=== PATIENT | male | born 1995 | race Caucasian/White ===

== ENCOUNTER 2025-01-14 19:26 | Outpatient (REF) | payer MEDICAID, SELFPAY ==
[2025-01-14 20:47] LABS: Abs Immature Grans 0.04 10^3/uL (0.0-0.06); HCT 51.3 % (40.0-50.0); HGB 16.8 g/dL (13.5-17.5); Immature Grans % 0.3 %; MCH 28.7 pg (27.0-33.0); MCHC 32.7 % (32.0-36.0); MCV 88 fL (80-95); MPV 11.8 fL (8.0-11.0); Platelet Count 435 10^3/uL (130-400); RBC 5.85 10^6/uL (4.36-5.78); RDW 12.0 % (11.8-14.1); RDW-SD 38.4 fL; WBC 12.03 10^3/uL (4.4-10.8)
[2025-01-14 21:03] LABS: Lipase 87 U/L (<53)
[2025-01-14 21:06] LABS: Hemoglobin A1C 11.5 % (<5.7)
[2025-01-14 21:20] LABS: ALT 51 U/L (10-49); AST 26 U/L (<34); Albumin 5.0 g/dL (3.4-5.0); Alkaline Phosphatase 87 U/L (46-116); Anion Gap 19.3 mmol/L (3-11); BUN 25 mg/dL (9-23); Bilirubin, Total 0.40 mg/dL (0.2-1.2); CO2 18.8 mmol/L (20.0-31.0); Calcium 10.4 mg/dL (8.3-10.6); Chloride 87 mmol/L (98-107); Cholesterol 280 mg/dL (<200); Glucose 839 mg/dL (74-106); HDL Cholesterol 33 mg/dL (>40); Potassium 4.9 mmol/L (3.5-5.1); Sodium 125 mmol/L (136-145); Total Protein 8.6 g/dL (5.7-8.2)
[2025-01-14 21:40] LABS: Amylase 30 U/L (30-118)
== END 2025-01-14 19:27 | disposition home or self-care (01) ==
LOC: LBN 19:26
PROVIDERS: Visit Provider Nurse Practitioner Family
DX: R10.11 Right upper quadrant pain (principal); R73.09 Other abnormal glucose
CPT/HCPCS: 80053; 80061; 83690; 83721; 82150; 83036; 85025

== ENCOUNTER 2025-01-15 09:32 | Inpatient (IN) | payer MEDICAID, SELFPAY ==
[2025-01-15] VITALS (102 sets, daily range): BP systolic 136–177; BP diastolic 101–128; PULSE 106–132; RESP 12–26; TEMP 35.8–36.9; O2SAT 92–963
--- NOTE | 2025-01-15 09:45 | DI.CT_ITS ---
Exam(s) CT ABDOMEN PELVIS W EXAM: CT ABDOMEN PELVIS W CLINICAL HISTORY: lower abdominal pain, vomiting. TECHNIQUE: Imaging Protocol: Axial computed tomography images with coronal and sagittal reformatted images were created and reviewed CONTRAST MATERIAL: Intravenous: Omnipaque-350 100cc Oral: None COMPARISON: No exams were available for comparison FINDINGS: VISUALIZED LUNG BASES: No nodules nor pleural effusions evident. ABDOMEN: There is no ascites. LIVER: Liver is enlarged and hypodense implying steatosis. No dilated intrahepatic ducts. GALLBLADDER/BILIARY: No obvious gallbladder pathology. CBD is not dilated. PANCREAS: No evidence of pancreatic mass nor dilatation of the pancreatic duct. No evidence of pancreatic atrophy, given the history here. Also no CT evidence of pancreatitis. SPLEEN: Spleen is not enlarged. No obvious intrasplenic lesions. Splenic and portal veins are patent. ADRENALS: There are no significant adrenal masses. KIDNEYS:No cysts evident. No solid renal masses. No calculi nor hydronephrosis.. ABDOMINAL AORTA: Abdominal aorta is not enlarged. LYMPH NODES:There is no retroperitoneal nor paraaortic adenopathy. ABDOMINAL WALL: No evidence of significant anterior abdominal wall nor inguinal hernia. GI: There is no evidence of bowel obstruction, free air, nor abscess. PELVIS: GI: Appendicolith but no evidence of acute appendicitis at this time.No evidence of sigmoid diverticulitis. LYMPH NODES: There is no intrapelvic nor inguinal adenopathy. REPRODUCTIVE: Prostate size normal. Seminal vesicles unremarkable. URINARY BLADDER: No calculi nor obvious masses evident OSSEOUS: No fractures and no significant osseous lesions. IMPRESSION: 1. No evidence of acute appendicitis. No diverticulitis. 2. Hepatomegaly and hepatic steatosis. Report called by myself to ER provider 01/15/2025 at 11:10 a.m. RADIATION DOSE DELIVERED: 1,187.97mGy.cm Total DLP DATA REPOSITORY: All CT scans at this facility are submitted to the National Radiology Data Registry (NRDR) Dose Index Registry (DIR) with the [employer] (ACR). RADIATION OPTIMIZATION: All CT scans at this facility use at least one of these dose optimization techniques: automated exposure control; mA and/or kV adjustment per patient size (includes targeted exams where dose is matched to clinical indication); or iterative reconstruction.
--- NOTE | 2025-01-15 09:45 | RT.EKG_ITS ---
APPROVED REPORT Exam: Resting ECG Reason for Exam: tachy Patient Location: E HR:114 bpm ECG Measurements Heart Rate 114 AXIS WI 139 P 53 QRSd 99 QRS 13 QT 336 T 50 QTc 462 Conclusion No STEMI
--- NOTE | 2025-01-15 09:56 | W.ED.GENAD ---
Discharge Plan Disposition Patient Disposition: Admit to [facility] Condition: Good Discharge Details Clinical Impression: Diabetic ketoacidosis, Dehydration Primary Care Provider: Unknown,Unknown ED Provider: Piero Gaspar Home Meds and New Rx's Prescriptions: No Action No Known Home Meds HPI General Date/Time Provider Initiated Documentation: 01/15/25 09:52. HPI Narrative: This is a pleasant 29-year-old male with no known past medical history who presents today for medical evaluation of hyperglycemia and feeling unwell. For the past 7 days the patient has had nausea, vomiting, dysuria, generalized abdominal pain, and feeling unwell. He feels weak and slightly dizzy in general. He states that he is drinking frequently, and feels that he can never relieve his thirst. He denies any blood in his vomitus. He went to urgent care yesterday and had a notably elevated blood sugar, mildly elevated lipase, and other lab abnormalities and was encouraged to go to the ER for immediate evaluation. He states he has a strong family history of diabetes, hypertension and cardiac disease. He denies any other complaints at this time. Related Data Home Medications ?Medication ?Instructions ?Recorded ?Confirmed Unknown [No Known Home Meds] 01/15/25 01/15/25 Allergies Allergy/AdvReac Type Severity Reaction Status Date / Time No Known Allergies Allergy Unverified 01/15/25 09:57 General Stated Complaint: Dizzy/Sync EDGAR: 2 Exam Narrative Exam Narrative: 1.Const: Well-nourished, Well-developed, appearing stated age 2.Eyes: PERRL, no conjunctival injection, and symmetrical lids. 3.ENT: Atraumatic external nose and ears. Notably dry MM. Neck: Symmetric, trachea midline, No thyromegaly. 4.CVS: +S1/S2, Peripheral pulses 2+ and equal in all extremities. Brisk capillary refill in all extremities. 5.RESP: Unlabored respiratory effort. Clear to auscultation bilaterally. No wheezes rales or rhonchi 6.GI: Soft, nondistended, no guarding or rebound. Mild to moderate tenderness in the lower abdomen for the right left and middle regions. 7.MSK: Normocephalic/Atraumatic, Extremities w/o deformity or ttp No cyanosis or clubbing, Normal movement of all extremities 8.Skin: Warm, Dry. No rashes or lesions. 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 Sensation grossly intact, no focal neurologic deficits. 10.Psych: (AAO) x3. Appropriate mood and affect Course Vital Signs Vital signs: Vital Signs Temperature 36.7 C 01/15/25 09:40 Pulse 125 H 01/15/25 09:40 Respiratory Rate 18 01/15/25 09:40 Blood Pressure 173/111 H 01/15/25 09:40 Pulse Oximetry 963 H 01/15/25 09:40 Temperature 36.7 C 01/15/25 09:40 Temperature Source Oral 01/15/25 09:40 Pulse 125 H 01/15/25 09:40 Respiratory Rate 18 01/15/25 09:40 Blood Pressure 173/111 H 01/15/25 09:40 Pulse Oximetry 963 H 01/15/25 09:40 Medical Decision Making This is a pleasant 29-year-old male with no known past medical history who presents today for medical evaluation of hyperglycemia and feeling unwell. For the past 7 days the patient has had nausea, vomiting, dysuria, generalized abdominal pain, and feeling unwell. He feels weak and slightly dizzy in general. He states that he is drinking frequently, and feels that he can never relieve his thirst. He denies any blood in his vomitus. He went to urgent care yesterday and had a notably elevated blood sugar, mildly elevated lipase, and other lab abnormalities and was encouraged to go to the ER for immediate evaluation. He states he has a strong family history of diabetes, hypertension and cardiac disease. He denies any other complaints at this time. Exam demonstrates lower abdominal tenderness throughout, notably dry mucous membranes. Differential is very high for HHNK, DKA, appendicitis, UTI or pyelonephritis. We will start IV fluids for the patient, I suspect he is profoundly dehydrated. Depending on VBG status we will give potential IV versus subcu insulin. We will get an EKG, monitor closely and reassess. 11:41 AM Laboratory workup shows acidosis with a pH of 7.19, lactate of 3, elevated anion gap of 24, BUN of 24 with a creatinine of 1.1. He has an elevated white count but I suspect component of this may be secondary to volume concentration. Patient had a glucose of 647, sodium is 129 but corrected it is 138. No UTI on urinalysis, ketones are present though. Patient demonstrates signs and symptoms clinically consistent with diabetic ketoacidosis. CT of the abdomen negative for acute process aside for fatty liver. Insulin infusion was started early on, he received a liter of lactated Ringer's, followed by normal saline, and is currently getting his third liter at this time. Patient is feeling much better after rehydration and insulin infusion. Discussed the case with the hospitalist Dr. Waite, he agrees with the assessment and plan. I have extensively reviewed the treatment plan with the patient. I have addressed all patient concerns at this time. I have also discussed the plan with the admitting physician and they agree with the current assessment and plan and have agreed to assume responsibility for the patient. All parties demonstrate verbal understanding and agreement with our assessment and plan at this time. The documentation in this chart was dictated using [employer] dictation software. Please excuse any dictation errors. FINDINGS: VISUALIZED LUNG BASES: No nodules nor pleural effusions evident. ABDOMEN: There is no ascites. LIVER: Liver is enlarged and hypodense implying steatosis. No dilated intrahepatic ducts. GALLBLADDER/BILIARY: No obvious gallbladder pathology. CBD is not dilated. PANCREAS: No evidence of pancreatic mass nor dilatation of the pancreatic duct. No evidence of pancreatic atrophy, given the history here. Also no CT evidence of pancreatitis. SPLEEN: Spleen is not enlarged. No obvious intrasplenic lesions. Splenic and portal veins are patent. ADRENALS: There are no significant adrenal masses. KIDNEYS:No cysts evident. No solid renal masses. No calculi nor hydronephrosis.. ABDOMINAL AORTA: Abdominal aorta is not enlarged. LYMPH NODES:There is no retroperitoneal nor paraaortic adenopathy. ABDOMINAL WALL: No evidence of significant anterior abdominal wall nor inguinal hernia. GI: There is no evidence of bowel obstruction, free air, nor abscess. PELVIS: GI: Appendicolith but no evidence of acute appendicitis at this time.No evidence of sigmoid diverticulitis. LYMPH NODES: There is no intrapelvic nor inguinal adenopathy. REPRODUCTIVE: Prostate size normal. Seminal vesicles unremarkable. URINARY BLADDER: No calculi nor obvious masses evident OSSEOUS: No fractures and no significant osseous lesions. IMPRESSION: 1. No evidence of acute appendicitis. No diverticulitis. 2. Hepatomegaly and hepatic steatosis. Report called by myself to ER provider 01/15/2025 at 11:10 a.m. Critical Care Time Critical Care Time Critical Care Time: Yes Total Critical Care Time: 45 Attestation: Upon my evaluation, this patient had a high probability of imminent or life-threatening deterioration, which required my direct attention, intervention, and personal management. I have personally provided 45 minutes of critical care time exclusive of time spent on separately billable procedures. Time includes review of laboratory data, radiology results, discussion with consultants, and monitoring for potential decompensation. Interventions were performed as documented. PFSH All Active Problems (Updated 01/15/25 @ 11:45 by Piero Gaspar DO) Dehydration (Acute) Diabetic ketoacidosis (Acute) Social History Smoking/Tobacco Use Status: Never Smoking risk assessment performed?: Yes Do you feel safe at home: Yes Do you feel safe in your relationship?: Yes
[2025-01-15 10:02] LABS: Abs Immature Grans 0.07 10^3/uL (0.0-0.06); BE (Venous) -14 mmol/L (-2-3); HCO3 (Venous) 15 mmol/L (23-28); HCT 50.2 % (40.0-50.0); HGB 16.7 g/dL (13.5-17.5); Immature Grans % 0.4 %; MCH 28.1 pg (27.0-33.0); MCHC 33.3 % (32.0-36.0); MCV 85 fL (80-95); MPV 11.3 fL (8.0-11.0); O2 Sat (Venous) 80 %; Platelet Count 438 10^3/uL (130-400); RBC 5.94 10^6/uL (4.36-5.78); RDW 12.0 % (11.8-14.1); RDW-SD 36.7 fL; TCO2 (Venous) 13 mmol/L (24-29); WBC 16.04 10^3/uL (4.4-10.8); pCO2 (Venous) 39 mmHg (41-51); pO2 (Venous) 51 mmHg
[2025-01-15] MEDS: Ondansetron 4 MG/2 ML VIAL IVP (10:14)
[2025-01-15] MEDS: Lactated Ringers 1,000 ML 1000 ML IV ×2 (10:14→12:37)
[2025-01-15 10:18] LABS: Lipase 51 U/L (<53)
[2025-01-15 10:24] LABS: TSH (W/Ref FT4) 3.62 uIU/mL (0.55-4.78)
[2025-01-15 10:40] LABS: Glucose 500 mg/dL (Negative)
[2025-01-15] MEDS: Normal Saline - Diluent 50 ML VIAL IJ (10:40)
[2025-01-15] MEDS: Omnipaque 350 MG/ML 100 ML BTL IJ (10:40)
[2025-01-15] MEDS: Normal Saline Flush 10 ML SYR IVP ×2 (10:41→23:46)
[2025-01-15 10:51] LABS: WBC 0-2 HPF (0-5)
[2025-01-15 10:52] LABS: C & S Indicated? No
[2025-01-15] MEDS: INSULIN REGULAR IV (10:53)
[2025-01-15] MEDS: NACL IV (10:53)
[2025-01-15 10:56] LABS: Magnesium 2.1 mg/dL (1.6-2.6)
[2025-01-15] MEDS: Normal Saline 1,000 ML 1000 ML IV (10:56)
[2025-01-15 11:03] LABS: ALT 45 U/L (10-49); AST 25 U/L (<34); Albumin 4.9 g/dL (3.4-5.0); Alkaline Phosphatase 83 U/L (46-116); Anion Gap 24 mmol/L (3-11); BUN 24 mg/dL (9-23); Bilirubin, Total 0.40 mg/dL (0.2-1.2); CO2 15.1 mmol/L (20.0-31.0); Calcium 10.1 mg/dL (8.3-10.6); Chloride 90 mmol/L (98-107); Potassium 4.6 mmol/L (3.5-5.1); Sodium 129 mmol/L (136-145); Total Protein 8.8 g/dL (5.7-8.2)
[2025-01-15 11:06] LABS: Glucose 647 mg/dL (74-106)
[2025-01-15] MEDS: INSULIN REGULAR IN 0.9 % NACL 100 UNIT/100 ML BAG 14.8 UNIT IVINF (11:33)
[2025-01-15 13:29] LABS: Beta Hydroxybutyrate > 4.50 mmol/L (0.02-0.27)
--- NOTE | 2025-01-15 13:57 | HPE_ITS ---
Date of service: 01/15/25 Time of Service: 13:57 Assessment and Plan Assessment and plan (1) Diabetic ketoacidosis: Status: Acute Assessment and plan: AG acidosis and hyperglycemia and ketonuria c/w DKA Give appropriate fluid resuscitation in ED. Repeat BMP, fluids based on Na/K+ Follow [place] protocol with insulin drip see below. (2) Diabetes: Status: Chronic Assessment and plan: New onset, unclear type. Age and DKA suggest type 1 but habitus and diet suggest type 2. Get c-peptide, GAD65, and anti-insulin Ab to help differentiate DM education (3) Hypertension: Status: Chronic Assessment and plan: He has been worked up for this since teen years but never treated. I would not typically start BP meds inpatient, but if BPs persist high after resolution of DKA, consider [place]/ARB and outpatient f/u. (4) Obesity: Status: Chronic Assessment and plan: Nutrition consult with DM education. When catabolic state has been overcome, would benefit from GLP-1 regardless of diabetic type. History of Present Illness History of Present Illness Chief Complaint: vomiting Narrative: 29-year-old male with no known past medical history presenting with about a week of nausea, vomiting, polyuria, and malaise. [facility] was [facility] in [facility] and labs ordered, and he was told to go the ED when results returned. He states one week ago he noted he would try to eat solid food like chicken and it would make him nauseous and it would come back up. He could still eat more bland foods but by 4 days ago he wasn't able to keep any food down. He continued to drink fluids. He noted increasing fatigue and lightheadedness. He feels flushed at times this week, but no fever. He doesn't have abdominal or chest pain. No recent URI or diarrheal illness, no cough/SOB. He has noted some pain in the suprapubic area at the end of his urine stream especially. No penile discharge or hematuria. After IV fluids, his nausea feels better, feels his appetite coming back. He has never as this is the past. He has noted polyuria and polydypsia that have been present for the past month. He has lost 30lbs during that time. Review of Systems All systems reviewed & are unremarkable except as noted in HPI and below Constitutional Constitutional: Reports headache(s) (mild since being in hospital) ENT Ears, Nose, Mouth, and Throat: Reports headache(s) (mild since being in hospital) Neurologic Neurologic: Reports headache(s) (mild since being in hospital) PFSH All Active Problems (Updated 01/15/25 @ 15:07 by LYNNETTE ROONEY) Obesity (Chronic) Hypertension (Chronic) Diabetes (Chronic) Dehydration (Acute) Diabetic ketoacidosis (Acute) Family History (Updated 01/15/25 @ 16:55 by Herminio Merrill) Maternal Grandmother Diabetes Social History (Updated 01/15/25 @ 16:57 by Herminio Merrill) Smoking/Tobacco Use Status: Never Smoking risk assessment performed?: Yes Alcohol Intake: current Alcohol Intake frequency: holidays/special occasions only Drug use: Never Adopted: Yes Housing: apartment Do you feel safe at home: Yes Do you feel safe in your relationship?: Yes Additional Social history: Adopted, lives with adoptive Mom and GURPREET in [place], has relationship with mom. Sister lives in [facility]. Works at [employer] Allergies and Home Medications Allergies Allergy/AdvReac Type Severity Reaction Status Date / Time No Known Allergies Allergy Unverified 01/15/25 09:57 Home Medications ?Medication ?Instructions ?Recorded ?Confirmed ?Type Unknown [No Known Home Meds] 01/15/25 1 03/17/24 History Results Imaging Abdomen CT scan report/results: report reviewed (1. No evidence of acute appendicitis. No diverticulitis. 2. Hepatomegaly and hepatic steatosis.) E KG: report reviewed Labs 01/15/25 09:47 01/15/25 16:00 Labs: Laboratory Results - last 24 hr 01/15/25 01/15/25 09:47 10:23 WBC 16.04 H RBC 5.94 H Hgb 16.7 Hct 50.2 H MCV 85 MCH 28.1 MCHC 33.3 RDW 12.0 Plt Count 438 H MPV 11.3 H Immature Gran % 0.4 Neutrophils % 76.4 Lymphocytes % 15.6 Monocytes % 5.5 Eosinophils % 1.6 Basophils % 0.5 Nucleated RBC % 0.0 Absolute Neutrophils 12.25 H Absolute Lymphocytes 2.50 Absolute Monocytes 0.88 H Absolute Eosinophils 0.26 Absolute Basophils 0.08 VBG pH 7.19 L VBG pCO2 39 L VBG pO2 51 VBG HCO3 15 L VBG Total CO2 13 L VBG O2 Saturation 80 VBG Base Excess -14 L VBG Lactate 3.0 H* Sodium 129 L Potassium 4.6 Chloride 90 L Carbon Dioxide 15.1 L Anion Gap 24 H BUN 24 H Creatinine 1.1 Est GFR (CKD-EPI 2020) 78.54 Glucose 647 H* Calcium 10.1 Magnesium 2.1 Total Bilirubin 0.40 AST 25 ALT 45 Alkaline Phosphatase 83 Total Protein 8.8 H Albumin 4.9 Lipase 51 Beta-Hydroxybutyrate > 4.50 H TSH 3.62 Urine Color Yellow Urine Clarity Clear Urine pH 5.5 Ur Specific [place] 1.025 Urine Protein >=300 H Urine Ketones >=160 H Urine Blood Moderate H Urine Nitrite Negative Urine Bilirubin Small H Urine Urobilinogen 0.2 Ur Leukocyte Esterase Negative Urine RBC 3-5 H Urine WBC 0-2 Ur Epithelial Cells Rare Urine Crystals Few Amorphous Urine Bacteria Rare Urine Casts 0-2 Fine Granular Urine Mucus Negative Ur Culture Indicated? No Urine Glucose 500 H Last Vital Signs Temp 36.7 C 01/15/25 09:40 Pulse 114 H 01/15/25 13:30 Resp 18 01/15/25 13:30 BP 157/114 H 01/15/25 12:46 Pulse Ox 98 01/15/25 13:30 VTE Prohylaxis Risk Level: Moderate/High Risk Contraindications: None Prophylaxis: Pharmacologic (enoxaparin until ambulatory, adjust per BMI, need height) Time Spent Time spent with Patient: >75 minutes Time was spent: preparing to see the patient(eg.review tests), obtaining and/or reviewing separately otained hiistory, ordering medications,tests, procedures, referring, communicating with other health care program director, indepentently interpreting results, counseling the patient and care coordination
[2025-01-15 14:38] LABS: Anion Gap 21.7 mmol/L (3-11); BUN 21 mg/dL (9-23); CO2 13.3 mmol/L (20.0-31.0); Calcium 9.2 mg/dL (8.3-10.6); Chloride 100 mmol/L (98-107); Glucose 402 mg/dL (74-106); Sodium 135 mmol/L (136-145)
[2025-01-15 14:41] LABS: Potassium 4.6 mmol/L (3.5-5.1)
--- NOTE | 2025-01-15 14:45 | W.PC.ACHO ---
Registration Status: REG ER Primary Language: Preferred Language: ED Information & Data Chief Complaint Dizzy/Sync 01/15/25 10:08 Chief Complaint Dizzy/Sync 01/15/25 10:00 Triage Note weak and dizzy this am fell 01/15/25 09:40 denies head strike dx DM yesterday, unable to eat, increase urination, blood sugar at home 600+ this am Most Recent Vital Signs Temperature 36.7 C 01/15/25 09:40 Temperature Source Oral 01/15/25 09:40 Pulse 115 H 01/15/25 14:40 Pulse 115 H 01/15/25 14:40 Respiratory Rate 16 01/15/25 14:40 Blood Pressure 147/108 H 01/15/25 14:01 Blood Pressure Mean 119 01/15/25 14:01 Pulse Oximetry 94 01/15/25 14:40 Allergies No Known Allergies Allergy (Unverified 01/15/25 09:57) Active Medications Generic Name Dose Route Start Last Admin Trade Name Freq PRN Reason Stop Dose Admin Insulin Human Regular 100 unit in 100 mls @ 1 mls/hr 01/15/25 11:30 01/15/25 13:43 Myxredlin IVINF 12.8 unit/hr INFUSION CHELY 12.8 mls/hr Protocol Titration 1 UNIT/HR Iohexol 100 ml 01/15/25 10:45 01/15/25 10:40 Omnipaque 350 Mg/Ml 100 Ml Btl IJ 02/14/25 23:59 100 ml DIRECTED CHELY Administration Sodium Chloride 0 ml 01/15/25 10:39 01/15/25 10:41 Normal Saline Flush 10 Ml Syr IVP 10 ml PRN PRN Administration Sodium Chloride 50 ml 01/15/25 10:45 01/15/25 10:40 Normal Saline - Diluent 50 Ml Vial IJ 50 ml DIRECTED CHELY Administration IV IV Catheter Type [Right Saline Lock Antecubital] IV Catheter Type [Left Saline Lock Antecubital] IV Catheter Gauge [Right 18 Antecubital] IV Catheter Gauge [Left 18 Antecubital] Diet Orders Category Date Time Status Nothing Per Oral [DIET] Nutrition 01/15/25 11:45 Active Diagnostics 01/15/25 01/15/25 01/15/25 Range/Units 23:45 19:45 15:45 WBC (4.4-10.8) 10^3/uL RBC (4.36-5.78) 10^6/uL Hgb (13.5-17.5) g/dL Hct (40.0-50.0) % MCV (80-95) fL MCH (27.0-33.0) pg MCHC (32.0-36.0) % RDW (11.8-14.1) % Plt Count (130-400) 10^3/uL MPV (8.0-11.0) fL Immature Gran % % Neutrophils % % Lymphocytes % % Monocytes % % Eosinophils % % Basophils % % Nucleated RBC % (0.0-0.3) % Absolute Neutrophils (1.2-6.7) 10^3/uL Absolute Lymphocytes (1.2-3.4) 10^3/uL Absolute Monocytes (0.1-0.8) 10^3/uL Absolute Eosinophils (0.0-0.7) 10^3/uL Absolute Basophils (0.0-0.2) 10^3/uL VBG pH (7.31-7.41) VBG pCO2 (41-51) mmHg VBG pO2 mmHg VBG HCO3 (23-28) mmol/L VBG Total CO2 (24-29) mmol/L VBG O2 Saturation % VBG Base Excess (-2-3) mmol/L VBG Lactate (<or=2.0) mmol/L Sodium Pending Pending Pending (136-145) mmol/L Potassium Pending Pending Pending (3.5-5.1) mmol/L Chloride Pending Pending Pending (98-107) mmol/L Carbon Dioxide Pending Pending Pending (20.0-31.0) mmol/L Anion Gap Pending Pending Pending (3-11) mmol/L BUN Pending Pending Pending (9-23) mg/dL Creatinine Pending Pending Pending (0.73-1.18) mg/dL Est GFR (CKD-EPI 2020) Pending Pending Pending (mL/min/1.73m2) Glucose Pending Pending Pending (74-106) mg/dL Calcium Pending Pending Pending (8.3-10.6) mg/dL Magnesium (1.6-2.6) mg/dL Total Bilirubin (0.2-1.2) mg/dL AST (<34) U/L ALT (10-49) U/L Alkaline Phosphatase (46-116) U/L Total Protein (5.7-8.2) g/dL Albumin (3.4-5.0) g/dL Lipase (<53) U/L Beta-Hydroxybutyrate (0.02-0.27) mmol/L TSH (0.55-4.78) uIU/mL Urine Color (Yellow) Urine Clarity (Clear) Urine pH (5-8) Ur Specific [place] (1.005-1.025) Urine Protein (Neg-Trace) mg/dL Urine Ketones (Negative) mg/dL Urine Blood (Negative) Urine Nitrite (Negative) Urine Bilirubin (Negative) Urine Urobilinogen (Up to 0.2) mg/dL Ur Leukocyte Esterase (Negative) Urine RBC (0-2) HPF Urine WBC (0-5) HPF Ur Epithelial Cells (Negative) HPF Urine Crystals (Negative) HPF Urine Bacteria (Negative) HPF Urine Casts (Negative) LPF Urine Mucus (Negative) Ur Culture Indicated? Urine Glucose (Negative) mg/dL COVID-19 Source SARS-CoV-2 (PCR) Influenza Type A (PCR) Influenza Type B (PCR) RSV (PCR) 01/15/25 01/15/25 01/15/25 Range/Units 13:30 10:23 09:53 WBC (4.4-10.8) 10^3/uL RBC (4.36-5.78) 10^6/uL Hgb (13.5-17.5) g/dL Hct (40.0-50.0) % MCV (80-95) fL MCH (27.0-33.0) pg MCHC (32.0-36.0) % RDW (11.8-14.1) % Plt Count (130-400) 10^3/uL MPV (8.0-11.0) fL Immature Gran % % Neutrophils % % Lymphocytes % % Monocytes % % Eosinophils % % Basophils % % Nucleated RBC % (0.0-0.3) % Absolute Neutrophils (1.2-6.7) 10^3/uL Absolute Lymphocytes (1.2-3.4) 10^3/uL Absolute Monocytes (0.1-0.8) 10^3/uL Absolute Eosinophils (0.0-0.7) 10^3/uL Absolute Basophils (0.0-0.2) 10^3/uL VBG pH (7.31-7.41) VBG pCO2 (41-51) mmHg VBG pO2 mmHg VBG HCO3 (23-28) mmol/L VBG Total CO2 (24-29) mmol/L VBG O2 Saturation % VBG Base Excess (-2-3) mmol/L VBG Lactate (<or=2.0) mmol/L Sodium 135 L (136-145) mmol/L Potassium 4.6 (3.5-5.1) mmol/L Chloride 100 (98-107) mmol/L Carbon Dioxide 13.3 L (20.0-31.0) mmol/L Anion Gap 21.7 H (3-11) mmol/L BUN 21 (9-23) mg/dL Creatinine 0.9 (0.73-1.18) mg/dL Est GFR (CKD-EPI 2020) 101.08 (mL/min/1.73m2) Glucose 402 H (74-106) mg/dL Calcium 9.2 (8.3-10.6) mg/dL Magnesium (1.6-2.6) mg/dL Total Bilirubin (0.2-1.2) mg/dL AST (<34) U/L ALT (10-49) U/L Alkaline Phosphatase (46-116) U/L Total Protein (5.7-8.2) g/dL Albumin (3.4-5.0) g/dL Lipase (<53) U/L Beta-Hydroxybutyrate (0.02-0.27) mmol/L TSH (0.55-4.78) uIU/mL Urine Color Yellow (Yellow) Urine Clarity Clear (Clear) Urine pH 5.5 (5-8) Ur Specific [place] 1.025 (1.005-1.025) Urine Protein >=300 H (Neg-Trace) mg/dL Urine Ketones >=160 H (Negative) mg/dL Urine Blood Moderate H (Negative) Urine Nitrite Negative (Negative) Urine Bilirubin Small H (Negative) Urine Urobilinogen 0.2 (Up to 0.2) mg/dL Ur Leukocyte Esterase Negative (Negative) Urine RBC 3-5 H (0-2) HPF Urine WBC 0-2 (0-5) HPF Ur Epithelial Cells Rare (Negative) HPF Urine Crystals Few Amorphous (Negative) HPF Urine Bacteria Rare (Negative) HPF Urine Casts 0-2 Fine Granular (Negative) LPF Urine Mucus Negative (Negative) Ur Culture Indicated? No Urine Glucose 500 H (Negative) mg/dL COVID-19 Source Pending SARS-CoV-2 (PCR) Pending Influenza Type A (PCR) Pending Influenza Type B (PCR) Pending RSV (PCR) Pending 01/15/25 Range/Units 09:47 WBC 16.04 H (4.4-10.8) 10^3/uL RBC 5.94 H (4.36-5.78) 10^6/uL Hgb 16.7 (13.5-17.5) g/dL Hct 50.2 H (40.0-50.0) % MCV 85 (80-95) fL MCH 28.1 (27.0-33.0) pg MCHC 33.3 (32.0-36.0) % RDW 12.0 (11.8-14.1) % Plt Count 438 H (130-400) 10^3/uL MPV 11.3 H (8.0-11.0) fL Immature Gran % 0.4 % Neutrophils % 76.4 % Lymphocytes % 15.6 % Monocytes % 5.5 % Eosinophils % 1.6 % Basophils % 0.5 % Nucleated RBC % 0.0 (0.0-0.3) % Absolute Neutrophils 12.25 H (1.2-6.7) 10^3/uL Absolute Lymphocytes 2.50 (1.2-3.4) 10^3/uL Absolute Monocytes 0.88 H (0.1-0.8) 10^3/uL Absolute Eosinophils 0.26 (0.0-0.7) 10^3/uL Absolute Basophils 0.08 (0.0-0.2) 10^3/uL VBG pH 7.19 L (7.31-7.41) VBG pCO2 39 L (41-51) mmHg VBG pO2 51 mmHg VBG HCO3 15 L (23-28) mmol/L VBG Total CO2 13 L (24-29) mmol/L VBG O2 Saturation 80 % VBG Base Excess -14 L (-2-3) mmol/L VBG Lactate 3.0 H* (<or=2.0) mmol/L Sodium 129 L (136-145) mmol/L Potassium 4.6 (3.5-5.1) mmol/L Chloride 90 L (98-107) mmol/L Carbon Dioxide 15.1 L (20.0-31.0) mmol/L Anion Gap 24 H (3-11) mmol/L BUN 24 H (9-23) mg/dL Creatinine 1.1 (0.73-1.18) mg/dL Est GFR (CKD-EPI 2020) 78.54 (mL/min/1.73m2) Glucose 647 H* (74-106) mg/dL Calcium 10.1 (8.3-10.6) mg/dL Magnesium 2.1 (1.6-2.6) mg/dL Total Bilirubin 0.40 (0.2-1.2) mg/dL AST 25 (<34) U/L ALT 45 (10-49) U/L Alkaline Phosphatase 83 (46-116) U/L Total Protein 8.8 H (5.7-8.2) g/dL Albumin 4.9 (3.4-5.0) g/dL Lipase 51 (<53) U/L Beta-Hydroxybutyrate > 4.50 H (0.02-0.27) mmol/L TSH 3.62 (0.55-4.78) uIU/mL Urine Color (Yellow) Urine Clarity (Clear) Urine pH (5-8) Ur Specific [place] (1.005-1.025) Urine Protein (Neg-Trace) mg/dL Urine Ketones (Negative) mg/dL Urine Blood (Negative) Urine Nitrite (Negative) Urine Bilirubin (Negative) Urine Urobilinogen (Up to 0.2) mg/dL Ur Leukocyte Esterase (Negative) Urine RBC (0-2) HPF Urine WBC (0-5) HPF Ur Epithelial Cells (Negative) HPF Urine Crystals (Negative) HPF Urine Bacteria (Negative) HPF Urine Casts (Negative) LPF Urine Mucus (Negative) Ur Culture Indicated? Urine Glucose (Negative) mg/dL COVID-19 Source SARS-CoV-2 (PCR) Influenza Type A (PCR) Influenza Type B (PCR) RSV (PCR) [id number] Documentation Fingerstick Glucose Start: 01/15/25 11:25 Freq: Status: Complete Protocol: Activity Type Activity Date Activity User E-sign Co-sign Detail Recorded Client Recorded Date Recorded By Document 01/15/25 11:24 BKG DAEMON(9) NVT-BG05 01/15/25 11:25 BKG DAEMON(10) Fingerstick Glucose Start: 01/15/25 11:40 Freq: .Q1H Status: Active Protocol: Activity Type Activity Date Activity User E-sign Co-sign Detail Recorded Client Recorded Date Recorded By Document 01/15/25 13:39 BKG DAEMON(10) NVT-BG05 01/15/25 13:40 BKG DAEMON(10) Intake and Output - 24 Hour Total 01/15/25 09:32 thru 01/15/25 13:44 Intake Total 3059.754 Balance 3059.754 Weight 148.5 kg Intake: IV 3059.754 Falls Risk Assessment History of Falls Admit Due to Fall 01/15/25 09:59 Contributing Factors Unstable,Impairments 01/15/25 09:59 Ambulatory Aids Independent 01/15/25 09:59 Tubes/Lines None 01/15/25 09:59 Gait Evaluation No gait disturbance 01/15/25 09:59 Cognition No cognitive impairment 01/15/25 09:59 Fall Total Score 31 01/15/25 09:59 Level of Risk Moderate Risk 01/15/25 09:59 Problems Obesity (Chronic) Hypertension (Chronic) Diabetes (Chronic) Diabetic ketoacidosis (Acute) Attestation Statement: By documenting the first initial, last name, and credentials of the reporting nurse below, both parties acknowledge that all relevant information regarding the patient handoff has been communicated, and that all questions have been addressed to ensure continuity and safety of care. Additional Patient Information/Comments: A/O x3. Pleasant. New DM diagnosis. Needs education. Independently mobile. Voiding in urinal. Report Received From: Joe Kenny RN
[2025-01-15] MEDS: Lactated Ringers 1,000 ML 250 ML IV (15:30)
[2025-01-15 16:40] LABS: Anion Gap 18.4 mmol/L (3-11); BUN 18 mg/dL (9-23); CO2 18.5 mmol/L (20.0-31.0); Calcium 9.4 mg/dL (8.3-10.6); Chloride 98 mmol/L (98-107); Glucose 334 mg/dL (74-106); Potassium 4.3 mmol/L (3.5-5.1); Sodium 135 mmol/L (136-145)
[2025-01-15 17:01] LABS: COVID-19 PCR Negative (Negative); RSV PCR Negative (Negative)
[2025-01-15] MEDS: INSULIN REGULAR IN 0.9 % NACL 100 UNIT/100 ML BAG 13.3 UNIT IVINF (18:34)
[2025-01-15 20:28] LABS: Anion Gap 14.1 mmol/L (3-11); BUN 15 mg/dL (9-23); CO2 22.9 mmol/L (20.0-31.0); Calcium 9.1 mg/dL (8.3-10.6); Chloride 102 mmol/L (98-107); Glucose 216 mg/dL (74-106); Potassium 3.9 mmol/L (3.5-5.1); Sodium 139 mmol/L (136-145)
[2025-01-15] MEDS: POTASSIUM CHLORIDE/D5-0.45NACL 1,000 ML 200 MEQ IV (22:45)
[2025-01-15] MEDS: Acetaminophen 325 MG TAB 650 MG PO (23:46)
[2025-01-16] VITALS (75 sets, daily range): BP systolic 115–152; BP diastolic 74–118; PULSE 93–127; RESP 11–32; TEMP 35.9–36.7; O2SAT 92–99
[2025-01-16] MEDS: INSULIN REGULAR IN 0.9 % NACL 100 UNIT/100 ML BAG 15.8 UNIT IVINF (00:29)
[2025-01-16 00:40] LABS: Anion Gap 10 mmol/L (3-11); BUN 14 mg/dL (9-23); CO2 24.0 mmol/L (20.0-31.0); Calcium 8.9 mg/dL (8.3-10.6); Chloride 103 mmol/L (98-107); Glucose 165 mg/dL (74-106); Potassium 3.6 mmol/L (3.5-5.1); Sodium 137 mmol/L (136-145)
[2025-01-16] MEDS: POTASSIUM CHLORIDE/D5-0.45NACL 1,000 ML 200 MEQ IV ×2 (04:00→08:40)
[2025-01-16] MEDS: INSULIN REGULAR IN 0.9 % NACL 100 UNIT/100 ML BAG 18.8 UNIT IVINF (05:12)
[2025-01-16] MEDS: Acetaminophen 325 MG TAB 650 MG PO (05:26)
[2025-01-16 06:35] LABS: HCT 43.9 % (40.0-50.0); HGB 14.9 g/dL (13.5-17.5); MCH 28.9 pg (27.0-33.0); MCHC 33.9 % (32.0-36.0); MCV 85 fL (80-95); MPV 11.0 fL (8.0-11.0); Platelet Count 307 10^3/uL (130-400); RBC 5.16 10^6/uL (4.36-5.78); RDW 12.2 % (11.8-14.1); RDW-SD 37.4 fL; WBC 10.24 10^3/uL (4.4-10.8)
[2025-01-16 06:55] LABS: Magnesium 1.7 mg/dL (1.6-2.6)
[2025-01-16 06:56] LABS: Anion Gap 11.7 mmol/L (3-11); BUN 13 mg/dL (9-23); CO2 22.3 mmol/L (20.0-31.0); Calcium 8.6 mg/dL (8.3-10.6); Chloride 104 mmol/L (98-107); Glucose 146 mg/dL (74-106); Potassium 3.5 mmol/L (3.5-5.1); Sodium 138 mmol/L (136-145)
[2025-01-16] MEDS: INSULIN REGULAR IN 0.9 % NACL 100 UNIT/100 ML BAG 21.8 UNIT IVINF (08:41)
[2025-01-16] MEDS: Normal Saline Flush 10 ML SYR IVP ×2 (08:42→20:54)
[2025-01-16] MEDS: Enoxaparin 40 MG/0.4 ML SYR SC ×2 (08:42→20:55)
[2025-01-16] MEDS: Insulin Glargine 300 UNITS/3 ML PEN 40 UNITS SC ×2 (08:48→20:55)
--- NOTE | 2025-01-16 09:29 | INITIAL_ITS ---
Date of service: 01/16/25 Time of Service: 09:29 Care Management Initial Assmt Initial Assessment Reason for Hospitalization: DKA Functional Status/Living Situation Patient Presentation: Tk was sitting up on his bed visiting with his sister Carlotta when CM met with him. He was very pleasant and easy to engage. Tk was admitted with DKA. His blood sugar was over 800 on arrival and he had experienced a 30 lb weight loss in the preceding month. Tk lives in a duplex with his adoptive mother Ara and brother Tylor. Tk explained that he was adopted at about age 15 when his biological mother was having some issues and Tk needed a stable home environment. Tk's best friend Tylor is Ara's son. Tk spent a lot of time in their home growing up and when he needed to be placed she offered to adopt him. Tk is still on good terms with his biological mother and considers Ara his bonus Mom. Tk is independent at baseline and does not receive any community services. He works at [employer] however he does not have insurance. CM provided him with an [facility] Patient Financial Assistance packet. CM also sent a referral to [employer] to see if he is eligible for Medicaid and forwarded a signed the [place] [employer] consent form with the referral. Town of Residence: [place] Resides with: Parent (lives with Mom) Significant Other/Family: Local (has 3 sisters Leslie Laguerre and Oxana) Natural Supports: family Employment Status: Employed ([employer] in [place]) Instrumental Activities of Daily Living (ADLs): Independent Medications Medication Management: No Issues/Barriers identified and Issues/Barriers with Instructions/Directions (new diabetic- will need education re: diet and insulin) Physical Functioning/Mobility Assistive Device: none Advance Directives Advance Directives: Do you have an Advance Directive: N Today, 08:42 AD On File at [facility]: N Today, 08:42 Date Asked 01/15/25 01/15/25, 11:11 AD Date Reviewed COLST On File at [facility] COLST Date Scanned Code Status Resuscitation Status Full Code Portal Pt does not currently have a portal and education provided: Yes Insurance Coverage/Financial Issues Insurance: self pay Care Team Visit Care Team Role Provider Type Tk Bahena MD MD [facility] STAFF PHYSICIAN Unknown Unknown Primary Care Provider STAFF PHYSICIAN Amaris Castellanos RDN, CDCES Other Providers AUTOMOTIVE TECHNOLOGY INSTRUCTOR Jvaier Garsia RDN Other Providers AUTOMOTIVE TECHNOLOGY INSTRUCTOR Piero Gaspar DO Emergency Provider [facility] STAFF PHYSICIAN Herminio Merrill Admit Provider [facility] STAFF PHYSICIAN Attending Provider Discharge Potential Discharge Needs: PCP F/U Appt Anticipated Barriers to Discharge: None Identified Patient/Family Education Needs: Review discharge instructions, discuss Ask Me Three Transportation: Private vehicle Plan: Anticipate Tk will be discharged home with no new services when medically cleared. He will follow up with his PCP and plan of care and transport with family. CM will follow and continue to support discharge planning efforts. Social Determinants of Health Screening Will the Patient Participate in the Screening?: Declined to provide PFSH All Active Problems (Updated 01/15/25 @ 15:07 by LYNNETTE ROONEY) Obesity (Chronic) Hypertension (Chronic) Diabetes (Chronic) Dehydration (Acute) Diabetic ketoacidosis (Acute) Family History (Updated 01/15/25 @ 16:55 by Herminio Merrill) Maternal Grandmother Diabetes Social History (Updated 01/15/25 @ 16:57 by Herminio Merrill) Smoking/Tobacco Use Status: Never Smoking risk assessment performed?: Yes Alcohol Intake: current Alcohol Intake frequency: holidays/special occasions only Drug use: Never Adopted: Yes Housing: apartment Do you feel safe at home: Yes Do you feel safe in your relationship?: Yes Additional Social history: Adopted, lives with adoptive Mom and GURPREET in [place], has relationship with mom. Sister lives in [facility]. Works at [employer]
--- NOTE | 2025-01-16 11:22 | W.PM.PROGNOT ---
Date of Service Date of service: 01/16/25 Time of Service: 11:23 Assessment and Plan Assessment and plan (1) Diabetic ketoacidosis: Status: Acute Assessment and plan: -anion gap acidosis, elevated glucose and ketonuria on admission -started on insulin drip as per DKA protocol -gap closed as of AM 01/16; based on insulin needs have conservatively started lantus 40U BID and moderate sliding scale -continue to monitor blood glucose levels and adjust insulin as needed -appreciate Nutrition and Nursing working on new DM education, blood sugar checks and insulin administration (2) Diabetes: Status: Chronic Assessment and plan: -New onset, unclear typ -f/u c-peptide, GAD65, and anti-insulin Ab to help differentiate -treatment as noted above (3) Hypertension: Status: Chronic Assessment and plan: -initially elevated but has since normalized (4) Obesity: Status: Chronic Assessment and plan: -Nutrition consult with DM education Subjective Subjective Interval history since last seen: Patient states that he is doing well today and received a plan to transition to subcutaneous insulin. Otherwise he has no other complaints concerns at this time. Exam Narrative Exam Narrative: Well-appearing morbidly obese young gentleman sitting up in bed in no acute distress, ANO x 4, heart regular rhythm, lungs good auscultation bilaterally, abdomen soft, nontender, nondistended Objective Last Vital Signs Temp 97.0 F L 01/16/25 01:50 Pulse 98 H 01/16/25 08:01 Resp 22 01/16/25 10:01 BP 115/82 01/16/25 08:01 Pulse Ox 98 01/16/25 05:20 Laboratory Results - last 24 hr 01/15/25 01/15/25 01/15/25 00:15 09:47 13:30 WBC RBC Hgb Hct MCV MCH MCHC RDW Plt Count MPV Sodium 137 D 129 L 135 L Potassium 3.6 D 4.6 D 4.6 Chloride 103 100 Carbon Dioxide 24.0 13.3 L Anion Gap 10 21.7 H BUN 14 21 Creatinine 0.9 1.1 0.9 Est GFR (CKD-EPI 2020) 97.33 101.08 Glucose 165 H 402 H Calcium 8.9 9.2 Phosphorus Magnesium Beta-Hydroxybutyrate > 4.50 H COVID-19 Source SARS-CoV-2 (PCR) Influenza Type A (PCR) Influenza Type B (PCR) RSV (PCR) 01/15/25 01/15/25 01/15/25 16:00 16:15 20:00 WBC RBC Hgb Hct MCV MCH MCHC RDW Plt Count MPV Sodium 135 L 139 Potassium 4.3 3.9 Chloride 98 102 Carbon Dioxide 18.5 L 22.9 Anion Gap 18.4 H 14.1 H BUN 18 15 Creatinine 0.9 0.8 Est GFR (CKD-EPI 2020) 102.40 109.46 Glucose 334 H 216 H Calcium 9.4 9.1 Phosphorus Magnesium Beta-Hydroxybutyrate COVID-19 Source Nasopharynx SARS-CoV-2 (PCR) Negative Influenza Type A (PCR) Negative Influenza Type B (PCR) Negative RSV (PCR) Negative 01/16/25 05:50 WBC 10.24 RBC 5.16 Hgb 14.9 Hct 43.9 MCV 85 MCH 28.9 MCHC 33.9 RDW 12.2 Plt Count 307 MPV 11.0 Sodium 138 Potassium 3.5 Chloride 104 Carbon Dioxide 22.3 Anion Gap 11.7 H BUN 13 Creatinine 0.8 Est GFR (CKD-EPI 2020) 117.49 Glucose 146 H Calcium 8.6 Phosphorus 2.0 L Magnesium 1.7 Beta-Hydroxybutyrate COVID-19 Source SARS-CoV-2 (PCR) Influenza Type A (PCR) Influenza Type B (PCR) RSV (PCR) Time Spent with Patient Time Spent with Patient: >50 minutes Time was spent: preparing to see the patient(eg.review tests), obtaining and/or reviewing separately otained hiistory, ordering medications,tests, procedures, referring, communicating with other health healthcare consultant, indepentently interpreting results, counseling the patient and care coordination
[2025-01-16 11:58] LABS: Hemoglobin A1C 11.6 % (<5.7)
--- NOTE | 2025-01-16 14:03 | W.NUTRFU ---
Date of service: 01/16/25 Time of Service: 14:04 Nutrition Note NOTE: Consult request received re: diabetes mgt/education. Tk schmidt with new diabetes 2 days ago. came in to ER with glucose in the 600's yesterday. Was put on insulin drip and ordered for 40u insulin glargine BID today along with moderate sliding scale for meal corrections and at 22:00. A1c currently 11.6. Glucose this morning 146 fasting and 128 at breakfast, 133 at lunch. Current insulin protocol seems to be effective so far keeping glucose closer to goal. Labs are pending for c-peptide, insulin and GAD65 for further guidance into insulin production. The results will give guidance as to whether insulin might be required or if pt may be able to start achieving better glucose control on oral agents and diet/lifestyle changes alone. Provided handout with review of general education in terms of carb counting awareness, balancing plate, limiting added sugars and processed/refined starches and aiming to improve insulin sensitivity via exercise and weight loss. Pt expected to stay another night inpatient. Goal is to visit tomorrow to reinforce education, perhaps provide CGM and make an oupatient appt in about 10 days to review glucose patterns. Will review glucose patterns and total insulin given tomorrow to make any further recomendations. Time Spent in Nutritional Counseling and Treatment: 20 min
[2025-01-16] MEDS: Calcium Carbonate *TUMS* 500 MG CHEW 1000 MG PO (16:19)
[2025-01-16] MEDS: Insulin Aspart 300 UNITS/3 ML PEN SC ×3 (17:07→23:31)
[2025-01-16] MEDS: Polyethylene Glycol 3350 17 GM PACKET PO (17:28)
[2025-01-16] MEDS: Bisacodyl 10 MG SUPP PR (18:11)
--- NOTE | 2025-01-16 18:36 | W.PC.ACHO ---
Registration Status: ADM IN Primary Language: Preferred Language: ED Information & Data Chief Complaint Dizzy/Sync 01/15/25 10:08 Chief Complaint Dizzy/Sync 01/15/25 10:00 Triage Note weak and dizzy this am fell 01/15/25 09:40 denies head strike dx DM yesterday, unable to eat, increase urination, blood sugar at home 600+ this am Most Recent Vital Signs Temperature 36.4 C L 01/16/25 16:05 Temperature Source Temporal Artery Scan 01/16/25 16:05 Pulse 108 H 01/16/25 14:01 Pulse 115 H 01/16/25 16:00 Respiratory Rate 17 01/16/25 16:00 Blood Pressure 122/89 01/16/25 14:01 Blood Pressure Mean 99 01/16/25 14:01 Pulse Oximetry 98 01/16/25 05:20 Pain Level 2 01/16/25 05:26 Allergies No Known Allergies Allergy (Unverified 01/15/25 09:57) Active Medications Generic Name Dose Route Start Last Admin Trade Name Freq PRN Reason Stop Dose Admin Acetaminophen 650 mg 01/15/25 11:44 01/16/25 05:26 Acetaminophen 325 Mg Tab PO 650 mg Q4H PRN PRN Administration Bisacodyl 10 mg 01/16/25 17:31 01/16/25 18:11 Bisacodyl 10 Mg Supp GA 10 mg DAILY PRN PRN Administration Calcium Carbonate 1,000 mg 01/16/25 15:57 01/16/25 16:19 Calcium Carbonate *Tums* 500 Mg Chew PO 1,000 mg QID PRN PRN Administration Insulin Human Regular 100 unit in 100 mls @ 1 mls/hr 01/15/25 11:30 01/16/25 18:15 Myxredlin IVINF Infused INFUSION [facility] Titration Protocol 1 UNIT/HR Potassium Chloride/Sodium Chloride 1,000 mls @ 200 mls/hr 01/15/25 22:00 01/16/25 18:16 Kcl 20meq/D5-0.45% Nacl IV Infused INFUSION CHELY Infusion Insulin Aspart 0 units 01/16/25 12:00 01/16/25 17:07 Insulin Aspart 300 Units/3 Ml Pen SC 12 units 0800,1200,1700,2200 CHELY Administration Protocol Insulin Glargine 40 units 01/16/25 08:30 01/16/25 08:48 Insulin Glargine 300 Units/3 Ml Pen SC 40 units BID CHELY Administration Polyethylene Glycol 17 gm 01/15/25 11:44 01/16/25 17:28 Polyethylene Glycol 3350 17 Gm Packet PO 17 gm DAILY PRN PRN Administration Constipation Sodium Chloride 0 ml 01/15/25 09:52 01/15/25 23:46 Normal Saline Flush 10 Ml Syr IVP 10 ml PRN PRN Administration Sodium Chloride 0 ml 01/15/25 20:00 01/16/25 08:42 Normal Saline Flush 10 Ml Syr IVP 40 ml BID CHELY Administration Sodium Chloride 0 ml 01/15/25 10:39 01/15/25 10:41 Normal Saline Flush 10 Ml Syr IVP 10 ml PRN PRN Administration Sodium Chloride 50 ml 01/15/25 10:45 01/15/25 10:40 Normal Saline - Diluent 50 Ml Vial IJ 50 ml DIRECTED CHELY Administration IV IV Catheter Type [Right Saline Lock Antecubital] IV Catheter Type [Left Saline Lock Antecubital] IV Catheter Gauge [Right 18 Antecubital] IV Catheter Gauge [Left 18 Antecubital] Diet Orders Category Date Time Status DIET [Diabetes Consistent CHO] [DIET] Nutrition 01/16/25 Lunch Active Diagnostics 01/16/25 01/15/25 01/15/25 Range/Units 05:50 20:00 09:47 WBC 10.24 (4.4-10.8) 10^3/uL RBC 5.16 (4.36-5.78) 10^6/uL Hgb 14.9 (13.5-17.5) g/dL Hct 43.9 (40.0-50.0) % MCV 85 (80-95) fL MCH 28.9 (27.0-33.0) pg MCHC 33.9 (32.0-36.0) % RDW 12.2 (11.8-14.1) % Plt Count 307 (130-400) 10^3/uL MPV 11.0 (8.0-11.0) fL Sodium 138 139 129 L (136-145) mmol/L Potassium 3.5 3.9 4.6 D (3.5-5.1) mmol/L Chloride 104 102 (98-107) mmol/L Carbon Dioxide 22.3 22.9 (20.0-31.0) mmol/L Anion Gap 11.7 H 14.1 H (3-11) mmol/L BUN 13 15 (9-23) mg/dL Creatinine 0.8 0.8 1.1 (0.73-1.18) mg/dL Est GFR (CKD-EPI 2020) 117.49 109.46 (mL/min/1.73m2) Glucose 146 H 216 H (74-106) mg/dL Hemoglobin A1c 11.6 H (<5.7) % Calcium 8.6 9.1 (8.3-10.6) mg/dL Phosphorus 2.0 L (2.4-5.1) mg/dL Magnesium 1.7 (1.6-2.6) mg/dL 01/15/25 Range/Units 00:15 WBC (4.4-10.8) 10^3/uL RBC (4.36-5.78) 10^6/uL Hgb (13.5-17.5) g/dL Hct (40.0-50.0) % MCV (80-95) fL MCH (27.0-33.0) pg MCHC (32.0-36.0) % RDW (11.8-14.1) % Plt Count (130-400) 10^3/uL MPV (8.0-11.0) fL Sodium 137 D (136-145) mmol/L Potassium 3.6 D (3.5-5.1) mmol/L Chloride 103 (98-107) mmol/L Carbon Dioxide 24.0 (20.0-31.0) mmol/L Anion Gap 10 (3-11) mmol/L BUN 14 (9-23) mg/dL Creatinine 0.9 (0.73-1.18) mg/dL Est GFR (CKD-EPI 2020) 97.33 (mL/min/1.73m2) Glucose 165 H (74-106) mg/dL Hemoglobin A1c (<5.7) % Calcium 8.9 (8.3-10.6) mg/dL Phosphorus (2.4-5.1) mg/dL Magnesium (1.6-2.6) mg/dL [id number] Documentation Fingerstick Glucose Start: 01/15/25 11:25 Freq: Status: Complete Protocol: Activity Type Activity Date Activity User E-sign Co-sign Detail Recorded Client Recorded Date Recorded By Document 01/15/25 11:24 BKG DAEMON(7) NVT-BG05 01/15/25 11:25 BKG DAEMON(8) Fingerstick Glucose Start: 01/15/25 11:40 Freq: .Q1H Status: Complete Protocol: Activity Type Activity Date Activity User E-sign Co-sign Detail Recorded Client Recorded Date Recorded By Document 01/16/25 08:09 BKG DAEMON(9) NVT-BG05 01/16/25 08:10 BKG DAEMON(10) Fingerstick Glucose Start: 01/16/25 08:44 Freq: .ACHS Status: Active Protocol: Activity Type Activity Date Activity User E-sign Co-sign Detail Recorded Client Recorded Date Recorded By Document 01/16/25 16:56 BKG DAEMON(10) NVT-BG05 01/16/25 17:02 BKG DAEMON(10) Intake and Output - 24 Hour Total 01/15/25 09:32 thru 01/16/25 18:16 Intake Total 6897.309 Output Total 1450 Balance 5447.309 Weight 149.1 kg Intake: IV 6697.309 Oral 200 Output: Urine 1450 Other: Urine Color Light Jocelyn Urine Appearance Clear Falls Risk Assessment History of Falls Admit Due to Fall 01/15/25 09:59 Contributing Factors Unstable,Impairments 01/15/25 09:59 Ambulatory Aids Independent 01/15/25 09:59 Tubes/Lines None 01/15/25 09:59 Gait Evaluation No gait disturbance 01/15/25 09:59 Cognition No cognitive impairment 01/15/25 09:59 Fall Total Score 31 01/15/25 09:59 Level of Risk Moderate Risk 01/15/25 09:59 Problems Obesity (Chronic) Hypertension (Chronic) Diabetes (Chronic) Diabetic ketoacidosis (Acute) Attestation Statement: By documenting the first initial, last name, and credentials of the reporting nurse below, both parties acknowledge that all relevant information regarding the patient handoff has been communicated, and that all questions have been addressed to ensure continuity and safety of care. Additional Patient Information/Comments: 01/15 admission for DKA, new onset. Not feeling well x 1 week. Polyuria and polydypsia x 1 month. NKA. Insulin gtt at 1115 today. Lantus 40 units just before. C/O acid reflux - got TUMS. c/o constipated - got mirilax and suppository. alert and oriented, afebrile, LS CTA/dim. HR 100-120's. BPs tend to be high. Pulses good. FS 349, 12 units aspart given. Patient did it himself. Information on how to carb count at bedside. Last BM was several days ago. Voiding no issues. Walking independently. No issues with skin. LAC and RAC #18. No running fluids. Saida JENY is getting him set up with PCP. Make sure he has enough insulin and needles to last until he goes to PCP. Report Received From: Monie Perez RN
[2025-01-17 02:50] VITALS: BP 145/96; PULSE 105; RESP 18; TEMP 35.9; O2SAT 98
[2025-01-17 07:15] LABS: HCT 42.9 % (40.0-50.0); HGB 14.6 g/dL (13.5-17.5); MCH 28.9 pg (27.0-33.0); MCHC 34.0 % (32.0-36.0); MCV 85 fL (80-95); MPV 10.8 fL (8.0-11.0); Platelet Count 310 10^3/uL (130-400); RBC 5.05 10^6/uL (4.36-5.78); RDW 12.2 % (11.8-14.1); RDW-SD 37.6 fL; WBC 8.10 10^3/uL (4.4-10.8)
[2025-01-17 07:40] VITALS: BP 150/96; PULSE 101; RESP 16; TEMP 36.8; O2SAT 98
[2025-01-17 07:46] LABS: Anion Gap 12.3 mmol/L (3-11); BUN 13 mg/dL (9-23); CO2 20.7 mmol/L (20.0-31.0); Calcium 8.7 mg/dL (8.3-10.6); Chloride 101 mmol/L (98-107); Glucose 311 mg/dL (74-106); Potassium 3.8 mmol/L (3.5-5.1); Sodium 134 mmol/L (136-145)
[2025-01-17] MEDS: Enoxaparin 40 MG/0.4 ML SYR SC ×2 (08:07→20:04)
[2025-01-17] MEDS: Insulin Glargine 300 UNITS/3 ML PEN 50 UNITS SC (08:08)
[2025-01-17] MEDS: Insulin Aspart 300 UNITS/3 ML PEN SC ×4 (08:08→22:23)
[2025-01-17] MEDS: Normal Saline Flush 10 ML SYR IVP ×2 (08:09→20:04)
--- NOTE | 2025-01-17 08:43 | PDOC.CMIN ---
Date of service: 01/17/25 Time of Service: 08:43 Care Management Initial Assmt Advance Directives Advance Directives: Do you have an Advance Directive: N 01/16/25, 08:42 AD On File at [facility]: N 01/16/25, 08:42 Date Asked 01/15/25 01/15/25, 11:11 AD Date Reviewed COLST On File at [facility] COLST Date Scanned Code Status Resuscitation Status Full Code Care Team Visit Care Team Role Provider Type Tk Bahena MD MD [facility] STAFF PHYSICIAN Unknown Unknown Primary Care Provider STAFF PHYSICIAN Amaris Castellanos, MARY, CDCES Other Providers RESERVOIR ENGINEERING ADVISOR Javier Garsia RDN Other Providers RESERVOIR ENGINEERING ADVISOR Piero Gaspar, Emergency Provider [facility] STAFF PHYSICIAN Herminio Merrill Admit Provider [facility] STAFF PHYSICIAN Attending Provider Social Determinants of Health Screening Will the Patient Participate in the Screening?: Declined to provide PFSH All Active Problems (Updated 01/15/25 @ 15:07 by LYNNETTE ROONEY) Obesity (Chronic) Hypertension (Chronic) Diabetes (Chronic) Dehydration (Acute) Diabetic ketoacidosis (Acute) Family History (Updated 01/15/25 @ 16:55 by Herminio Merrill) Maternal Grandmother Diabetes Social History (Updated 01/15/25 @ 16:57 by Herminio Merrill) Smoking/Tobacco Use Status: Never Smoking risk assessment performed?: Yes Alcohol Intake: current Alcohol Intake frequency: holidays/special occasions only Drug use: Never Adopted: Yes Housing: apartment Do you feel safe at home: Yes Do you feel safe in your relationship?: Yes Additional Social history: Adopted, lives with adoptive Mom and GURPREET in [place], has relationship with mom. Sister lives in [facility]. Works at [employer] (acquired by [employer] in 2014)
[2025-01-17 11:04] VITALS: BP 146/93; PULSE 108; RESP 16; TEMP 37.1; O2SAT 97
--- NOTE | 2025-01-17 12:05 | PDOC.CMPRO ---
Date of service: 01/17/25 Time of Service: 12:05 Care Management Progress Note Progress Note Text Progress Note Text: Tk is being closely monitored and treated for DKA and was sitting in a chair, visiting with his sister Dominique when CM met with him. He is currently in self pay status and has been approved for Medicaid, but his coverage is not active yet, therefor he will likely discharge without medical or prescription benefits in place. The [facility] is working on expediting the start date of his Medicaid coverage, however their ability to do this is limited due to the [employer] website being down. Tk will be given the remainder of his insulin supply on discharge, and if possible enough to get him through until Monday. CM spoke with the DM educator and patient will be given a CGM on discharge. CM will follow. Discharge Potential Discharge Needs: PCP F/U Appt Anticipated Barriers to Discharge: Medical Status Patient/Family Education Needs: Review discharge instructions, discuss Ask Me Three Transportation: Private vehicle Plan: Anticipate Tk will be discharged home with no new services when medically cleared. He will follow up with his PCP and plan of care and transport with family. CM will follow and continue to support discharge planning efforts. Social Determinants of Health Screening Will the Patient Participate in the Screening?: Declined to provide
--- NOTE | 2025-01-17 12:24 | PHA.REVIEW2 ---
Pharmacy Admission Review Admission Clinical Review Admission Pharmacy Review: Diabetic ketoacidosis (Acute) No Known Allergies Allergy (Unverified 01/15/25 09:57) Resuscitation Status Full Code Height 6 ft Weight 151.046 kg Pharmacy Admission Review Renal Dosing Renal Dosing: BUN 13 mg/dL (9-23) 01/17/25 07:00 Creatinine 1.0 mg/dL (0.73-1.18) 01/17/25 07:00 Medications needing adjustments: Reviewed (CrCl 167.9 mL/min) List of meds needing interventions: Current medications are okay Anticoagulation Anticoagulation: Hgb 14.6 g/dL (13.5-17.5) 01/17/25 07:00 Hct 42.9 % (40.0-50.0) 01/17/25 07:00 Plt Count 310 10^3/uL (130-400) 01/17/25 07:00 Creatinine 1.0 mg/dL (0.73-1.18) 01/17/25 07:00 DVT Prophylaxis: Reviewed Medications: Enoxaparin (40mg q12h - BMI > 40) Relevant Labs Relevant Labs: Sodium 134 mmol/L (136-145) L 01/17/25 07:00 Potassium 3.8 mmol/L (3.5-5.1) 01/17/25 07:00 Chloride 101 mmol/L (98-107) 01/17/25 07:00 Phosphorus 2.0 mg/dL (2.4-5.1) L 01/16/25 05:50 Magnesium 1.7 mg/dL (1.6-2.6) 01/16/25 05:50 Electrolytes, C-Reactive P, ESR: Reviewed DM Control DM Control: Glucose 311 mg/dL (74-106) H 01/17/25 07:00 Hemoglobin A1c 11.6 % (<5.7) H 01/16/25 05:50 Finger Stick Blood Glucose 474 1200 Finger Stick Blood Glucose 474 1200 Finger Stick Blood Glucose 446 1157 Finger Stick Blood Glucose 446 1157 Finger Stick Blood Glucose 511 1155 Finger Stick Blood Glucose 511 1155 Finger Stick Blood Glucose 333 0808 Finger Stick Blood Glucose 333 0808 Finger Stick Blood Glucose 333 0738 Finger Stick Blood Glucose 333 0738 DM Control: Intervened (discontinued insulin infusion order - provider aware) Insulin Dosing, Diabetic Medication: Has orders for SS insulin and glargine 50 units twice daily. Asked provider if order for insulin infusion could be discontinued, provider was okay with this. Cardiac Review Cardiac Review: Blood Pressure : Heart Rate 146/93 : 108 1104 Blood Pressure : Heart Rate 150/96 : 101 0740 Blood Pressure : Heart Rate 145/96 : 105 0250 BP, HR, EF%: Reviewed QTc Review QTc: Reviewed (462 from 01/15/25) IV to PO Switch IV Medications: Reviewed Home Meds Home Med List reviewed: Reviewed Relevent Home Meds Not ordered & why?: No known home meds Current Meds Current Medication Order Review: Intervened Comments: Discontinued insulin infusion order - provider aware
[2025-01-17 13:00] LABS: Glucose 441 mg/dL (74-106)
--- NOTE | 2025-01-17 13:21 | CHAPLAIN ---
Tk was up in the chair, visiting with his sister when I stopped he. He was very pleasant and easily engaged in a conversation telling me that he lives in [place], [place], and was visiting his sister over here when he needed to come to the ED. He said he was grateful he was nearby a hospital at the time.
--- NOTE | 2025-01-17 14:09 | W.NUTRFU ---
Date of service: 01/17/25 Time of Service: 14:09 Nutrition Note NOTE: Visited with Tk and his sister. Had a great sleep last night. Sister bought a capillary glucometer and have been checking when nursing does fingersticks to check on how they compare - have found the glucometer to be lower than fs from nursing. Encouraged to be sure to read the directions and ensure clean finger - explained can be off for number of reasons like dirty hands, improper technique, strips not store properly etc... - encouraged to read directions thoroughly and continue trying. insulin glargine order upped to 50units BID today with continued mod sliding scale at meals and 22:00. fingersticks took upward turn today with 333 this morning , 511 by lunch time and 474 at most recent check about an hour ago. c-peptide lab at 3.3 (wnl). TDD of insulin yesterday was 114units for the day (~.75units/kg). Tk staying another night due to the climb in glucose and insulin adjustments. I will be here tomorrow and plan on affixing CGM and pt agreeing to schedule outpatient diabetes education appt 10 days after starting to review glucose profile. Would recommend refraining from adding any additional basal insulin from this point as he is already over half his TDD in basal insulin. Suggest next steps of increasing to resistant sliding scale for corrections AC and at 22:00 as well as adding 1 unit per 20 grams CHO to his corrections at meals for proactive anticipation of glucose excursions after eating. Could also consider oral agents (metformin/sglt-2i) trial with adjustments down in insulin. Time Spent in Nutritional Counseling and Treatment: 10 min
[2025-01-17] MEDS: Insulin Aspart 300 UNITS/3 ML PEN 30 UNITS SC (15:43)
[2025-01-17 19:43] VITALS: BP 150/100; PULSE 117; RESP 16; TEMP 36.8; O2SAT 96
[2025-01-17] MEDS: Insulin Glargine 300 UNITS/3 ML PEN 70 UNITS SC (20:03)
[2025-01-17] MEDS: Insulin Aspart 300 UNITS/3 ML PEN 8 UNITS SC (20:03)
--- NOTE | 2025-01-17 22:53 | W.EVENT ---
Date of service: 01/17/25 Time of Service: 22:53 Event Note: NS report pt with an enlarged meatus, abnormal urethra. PE shows what appears to be an enlarged meatus which the pt states is new since admission. Will place consult for Urology Time Spent with Patient Time spent in critical care(minutes): 2 Time Spent Included: Coordination of care, Chart review and Other
[2025-01-17 23:22] VITALS: BP 147/111; PULSE 117; RESP 16; TEMP 36.9; O2SAT 96
[2025-01-17 23:39] VITALS: BP 154/98
[2025-01-18] VITALS (8 sets, daily range): BP systolic 133–152; BP diastolic 80–100; PULSE 88–110; RESP 17–18; TEMP 35.5–36.8; O2SAT 96–100
[2025-01-18] MEDS: Clotrimazole 1% 15 GM TUBE TP ×3 (00:54→19:47)
[2025-01-18] MEDS: Enoxaparin 40 MG/0.4 ML SYR SC ×2 (07:58→19:46)
[2025-01-18] MEDS: Insulin Glargine 300 UNITS/3 ML PEN 85 UNITS SC ×2 (07:59→20:37)
[2025-01-18] MEDS: Insulin Aspart 300 UNITS/3 ML PEN SC ×5 (08:01→22:14)
[2025-01-18] MEDS: Normal Saline Flush 10 ML SYR IVP ×2 (08:04→19:48)
--- NOTE | 2025-01-18 12:08 | NUR.NOTE ---
Nursing Note: pt alert and oriented x 4 pt denies pain pt offered no complaints pt independent in the room pts telemetry stable SR HR 90's regular telemetry discontinued as per md order pt's BS's remain high over 300's pt given all scheduled medications pt able to set up and give himself scheduled insulin with good technique pt knows to rotate injection sites pt took a shower this am call rodriguez at side safety maintained
--- NOTE | 2025-01-18 16:06 | W.PM.PROGNOT ---
Date of Service Date of service: 01/18/25 Time of Service: 16:06 Assessment and Plan Assessment and plan (1) Diabetic ketoacidosis: Status: Acute Assessment and plan: -anion gap acidosis, elevated glucose and ketonuria on admission -started on insulin drip as per DKA protocol -gap closed as of AM 01/16; based on insulin needs have conservatively started lantus 40U BID and moderate sliding scale -lantus increased, now up to 85U BID -discussed with Nutrition; in addition to sliding scale have added 1U aspart per 15 grams of crabs with each meal -appreciate Nutrition and Nursing working on new DM education, blood sugar checks and insulin administration (2) Diabetes: Status: Chronic Assessment and plan: -New onset, unclear typ -f/u c-peptide, GAD65, and anti-insulin Ab to help differentiate -treatment as noted above (3) Hypertension: Status: Chronic Assessment and plan: -initially elevated but has since normalized (4) Obesity: Status: Chronic Assessment and plan: -Nutrition consult with DM education Subjective Subjective Interval history since last seen: Patient states that he is doing well today and appreciates that we are continuing to work on his blood sugar control. Exam Narrative Exam Narrative: Well-appearing morbidly obese young gentleman sitting up in bed in no acute distress, ANO x 4, heart regular rhythm, lungs good auscultation bilaterally, abdomen soft, nontender, nondistended Objective Last Vital Signs Temp 95.9 F L 01/18/25 15:31 Pulse 105 H 01/18/25 15:46 Resp 17 01/18/25 15:31 BP 141/98 H 01/18/25 15:46 Pulse Ox 96 01/18/25 15:31 Time Spent with Patient Time Spent with Patient: >50 minutes Time was spent: preparing to see the patient(eg.review tests), obtaining and/or reviewing separately otained hiistory, ordering medications,tests, procedures, referring, communicating with other health post acute care registered nurse, indepentently interpreting results, counseling the patient and care coordination
[2025-01-19 02:49] VITALS: BP 141/90; PULSE 89; RESP 18; TEMP 36.4; O2SAT 99
[2025-01-19 06:37] LABS: HCT 37.8 % (40.0-50.0); HGB 12.6 g/dL (13.5-17.5); MCH 28.3 pg (27.0-33.0); MCHC 33.3 % (32.0-36.0); MCV 85 fL (80-95); MPV 10.9 fL (8.0-11.0); Platelet Count 226 10^3/uL (130-400); RBC 4.45 10^6/uL (4.36-5.78); RDW 12.2 % (11.8-14.1); RDW-SD 37.0 fL; WBC 5.20 10^3/uL (4.4-10.8)
[2025-01-19 07:01] LABS: Anion Gap 10.4 mmol/L (3-11); BUN 15 mg/dL (9-23); CO2 26.6 mmol/L (20.0-31.0); Calcium 9.2 mg/dL (8.3-10.6); Chloride 103 mmol/L (98-107); Glucose 233 mg/dL (74-106); Potassium 3.5 mmol/L (3.5-5.1); Sodium 140 mmol/L (136-145)
[2025-01-19 07:54] VITALS: BP 153/92; PULSE 92; RESP 19; TEMP 35.6; O2SAT 100
[2025-01-19] MEDS: Enoxaparin 40 MG/0.4 ML SYR SC ×2 (08:50→20:39)
[2025-01-19] MEDS: Clotrimazole 1% 15 GM TUBE TP ×2 (08:51→20:41)
[2025-01-19] MEDS: Insulin Glargine 300 UNITS/3 ML PEN 85 UNITS SC ×2 (08:51→20:39)
[2025-01-19] MEDS: Normal Saline Flush 10 ML SYR IVP ×2 (08:51→20:40)
[2025-01-19] MEDS: Insulin Aspart 300 UNITS/3 ML PEN SC ×7 (08:53→22:00)
--- NOTE | 2025-01-19 09:25 | W.PM.PROGNOT ---
Date of Service Date of service: 01/19/25 Time of Service: 09:25 Assessment and Plan Assessment and plan (1) Diabetic ketoacidosis: Status: Acute Assessment and plan: -anion gap acidosis, elevated glucose and ketonuria on admission -started on insulin drip as per DKA protocol -gap closed as of AM 01/16; based on insulin needs have conservatively started lantus 40U BID and moderate sliding scale -lantus increased, now up to 85U BID -discussed with Nutrition; in addition to sliding scale have added 1U aspart per 15 grams of crabs with each meal -appreciate Nutrition and Nursing working on new DM education, blood sugar checks and insulin administration -if patients blood sugars remain elevated today despite addition of carb correction plan is to consult Endocrinology tomorrow 01/20 (2) Diabetes: Status: Chronic Assessment and plan: -New onset, unclear typ -f/u c-peptide, GAD65, and anti-insulin Ab to help differentiate -treatment as noted above (3) Hypertension: Status: Chronic Assessment and plan: -initially elevated but has since normalized (4) Obesity: Status: Chronic Assessment and plan: -Nutrition consult with DM education Subjective Subjective Interval history since last seen: Patient states that he is doing well and he understands the plan to see how the addition of carb corrected insulin works, but if his blood sugar remain elevated into tomorrow 01/20 that we will be consulting Endocrinology. Exam Narrative Exam Narrative: Well-appearing morbidly obese young gentleman sitting up in bed in no acute distress, ANO x 4, heart regular rhythm, lungs good auscultation bilaterally, abdomen soft, nontender, nondistended Objective Last Vital Signs Temp 96.1 F L 01/19/25 07:54 Pulse 92 H 01/19/25 07:54 Resp 19 01/19/25 07:54 BP 153/92 H 01/19/25 07:54 Pulse Ox 100 01/19/25 07:54 Laboratory Results - last 24 hr 01/19/25 06:10 WBC 5.20 RBC 4.45 Hgb 12.6 L D Hct 37.8 L MCV 85 MCH 28.3 MCHC 33.3 RDW 12.2 Plt Count 226 MPV 10.9 Sodium 140 Potassium 3.5 Chloride 103 Carbon Dioxide 26.6 Anion Gap 10.4 BUN 15 Creatinine 0.93 Est GFR (CKD-EPI 2020) 97.32 Glucose 233 H Calcium 9.2 Time Spent with Patient Time Spent with Patient: >50 minutes Time was spent: preparing to see the patient(eg.review tests), obtaining and/or reviewing separately otained hiistory, ordering medications,tests, procedures, referring, communicating with other health managed care coordinator, indepentently interpreting results, counseling the patient and care coordination
[2025-01-19 11:31] VITALS: BP 133/97; PULSE 96; RESP 18; TEMP 35.9; O2SAT 96
[2025-01-19 15:21] VITALS: BP 150/90; PULSE 95; RESP 17; TEMP 35.6; O2SAT 94
--- NOTE | 2025-01-19 16:08 | NUR.NOTE ---
Nursing Note: pt alert and oriented x 4 pt continues to preform own insulin administration with SV BS at 8am 233 12n 360 pt to be started on Metformin tonight pt independent in the room up in the chair call rodriguez at side safety maintained
[2025-01-19] MEDS: metFORMIN 500 MG TAB 1000 MG PO (17:11)
[2025-01-19 19:04] VITALS: BP 145/84; PULSE 97; RESP 18; TEMP 36.6; O2SAT 97
[2025-01-19 22:54] VITALS: BP 132/82; PULSE 101; RESP 18; TEMP 36.4; O2SAT 98
[2025-01-20 01:57] VITALS: BP 139/68; PULSE 82; RESP 18; TEMP 36.2; O2SAT 95
[2025-01-20 06:35] VITALS: BP 151/93; PULSE 93; RESP 18; TEMP 36.6; O2SAT 98
[2025-01-20 06:39] LABS: HCT 39.7 % (40.0-50.0); HGB 13.4 g/dL (13.5-17.5); MCH 29.2 pg (27.0-33.0); MCHC 33.8 % (32.0-36.0); MCV 87 fL (80-95); MPV 11.1 fL (8.0-11.0); Platelet Count 247 10^3/uL (130-400); RBC 4.59 10^6/uL (4.36-5.78); RDW 12.2 % (11.8-14.1); RDW-SD 38.5 fL; WBC 5.86 10^3/uL (4.4-10.8)
[2025-01-20 07:09] LABS: Anion Gap 9.3 mmol/L (3-11); BUN 14 mg/dL (9-23); CO2 28.7 mmol/L (20.0-31.0); Calcium 8.9 mg/dL (8.3-10.6); Chloride 104 mmol/L (98-107); Glucose 211 mg/dL (74-106); Potassium 3.5 mmol/L (3.5-5.1); Sodium 142 mmol/L (136-145)
[2025-01-20] MEDS: metFORMIN 500 MG TAB 1000 MG PO (08:28)
[2025-01-20] MEDS: Enoxaparin 40 MG/0.4 ML SYR SC (08:28)
[2025-01-20] MEDS: Clotrimazole 1% 15 GM TUBE TP (08:29)
[2025-01-20] MEDS: Insulin Glargine 300 UNITS/3 ML PEN 85 UNITS SC (08:30)
[2025-01-20] MEDS: Normal Saline Flush 10 ML SYR IVP (08:30)
[2025-01-20] MEDS: Insulin Aspart 300 UNITS/3 ML PEN SC ×4 (08:31→12:21)
--- NOTE | 2025-01-20 08:39 | PDOC.CMPRO ---
Date of service: 01/20/25 Time of Service: 08:39 Care Management Progress Note Discharge Potential Discharge Needs: PCP F/U Appt Anticipated Barriers to Discharge: None Identified Patient/Family Education Needs: Review discharge instructions, discuss Ask Me Three Transportation: Private vehicle Plan: Anticipate kT will be discharged home with no new services when medically cleared. He will follow up with his PCP and plan of care and transport with family. CM will follow and continue to support discharge planning efforts. Social Determinants of Health Screening Will the Patient Participate in the Screening?: Declined to provide
--- NOTE | 2025-01-20 08:43 | CMDISCH_ITS ---
Date of service: 01/20/25 Time of Service: 08:43 LACE Index Scoring Tool Questions: Length of Stay (in days): 4 - 6 Was the patient admitted via the E.D.?: Yes Comorbidities: Diabetes w/o Complication E.D. Visits: 1 Answers: Total Score: 9 Risk of Readmission: Low Risk Care Management Discharge Plan Reason for Hospitalization: DKA Discharge Plan: Tk will be discharged home with no new services. He will follow up with his PCP and plan of care and transport with his sister. Tk will have a follow up appointment with [facility] Endocrinology as well. Patient/Family Education Needs: Review discharge instructions, limitations, follow up plan, insulin administration, diet and discuss Ask Me Three
[2025-01-20 11:02] VITALS: BP 144/94; PULSE 100; RESP 18; TEMP 36.2; O2SAT 96
--- NOTE | 2025-01-20 12:46 | DSE_ITS ---
Date of service: 01/20/25 Time of Service: 13:08 DS: Diagnosis Discharge Diagnosis (1) Diabetic ketoacidosis: Status: Acute (2) Diabetes: Status: Chronic (3) Hypertension: Status: Chronic (4) Obesity: Status: Chronic Discharge Plan Disposition Patient Disposition: Home Condition: Good Discharge Details Reason For Visit: DKA, New DM Admit Date/Time: 01/15/25 11:44 Admit Provider: Herminio Merrill Attending Provider: Herminio Merrill Primary Care Provider: Unknown,Unknown Hospital Course Hospital Course: Patient initially presented to the hospitals with signs and symptoms consistent with DKA and a new diabetic. He was on insulin drip and ultimately his gap closed and transitioned to subcu insulin. Patient had significantly elevated insulin needs, ultimately requiring 85 units of Lantus twice daily, resistant sliding scale, as well as carbohydrate adjusted insulin prior to meals. However, this in addition to initiating metformin patient did have improvement of his blood sugars, being in the low 200s in the morning on the low mid 300s in the afternoon. Patient states that he has become more active as of late and intends to continue increasing his activity level immediately upon discharge. With shared decision making the patient is in agreement that his blood sugar levels while high are stable enough to continue to be managed at home. Additionally, the patient will have referral sent to [facility] endocrinology, and it is recommended that he have close follow-up with his primary care provider within 2 weeks. Home Meds and New Rx's Prescriptions: New metformin 500 mg Tablet 1,000 mg PO BID@0800,1700 Qty: 90 3RF insulin glargine [Lantus Solostar U-100 Insulin] 100 unit/mL (3 mL) Insulin Pen 85 unit SC BID Qty: 15 10RF insulin aspart U-100 100 unit/mL (3 mL) Insulin Pen 1 sliding scale dose subcut AC & HS Qty: 15 10RF Rx Instructions: <140, 0 units, 140-180, 3 units; 181-220, 6 units; 221-260, 9 units; 261-300, 12 units; 301-340, 15 units; 341-380, 18 units; 381-420, 21 units; 421-460, 24 units; 461-500, 27 units insulin aspart U-100 100 unit/mL (3 mL) Insulin Pen 1 sliding scale dose SC 0800,1200,1700 Qty: 15 10RF Rx Instructions: give 1 additional unit per 15 grams of carbohydrates with each meal (DME) insulin syr/ndl U100 half yenny 0.3 mL 29 gauge x 1/2 syringe See Rx Instructions .Route Qty: 100 2RF Rx Instructions: As directed Discharge Instructions Stand Alone Forms: Portal Information Activity:: Activity as Tolerated Equipment/Supplies:: No Equipment Needed Diet:: As Tolerated Discharge Orders Discharge Orders: Discharge Order (Routine); Ordered 01/20/25 Ordered By: Tk Bahena DS: Summary Time Spent with Patient providing and/or coordinating discharge services: Greater than 30 minutes Status at Discharge Functional status at discharge: independent ambulation Overall status at discharge: patient is back to baseline Mental Status: mental status grossly normal Speech and Movement: speech and movement normal Mood: congruent mood Affect: normal affect Exam Narrative Exam Narrative: Well-appearing morbidly obese young gentleman sitting up in bed in no acute distress, ANO x 4, heart regular rhythm, lungs good auscultation bilaterally, abdomen soft, nontender, nondistended Psych Mental Status: mental status grossly normal Speech and Movement: speech and movement normal Mood: congruent mood Affect: normal affect DS: Data Vitals/I&O Vitals and I&O: Vital Signs Temperature 97.2 F L 01/20/25 11:02 Temperature Source Temporal Artery Scan 01/20/25 11:02 Pulse 100 H 01/20/25 11:02 Pulse 115 H 01/16/25 16:00 Respiratory Rate 18 01/20/25 11:02 Blood Pressure 144/94 H 01/20/25 11:02 Blood Pressure Mean 110 01/20/25 11:02 Pulse Oximetry 96 01/20/25 11:02 Oxygen Delivery Method Room Air 01/20/25 11:02 Oxygen Flow Rate 0 01/20/25 11:02 Pain Level 0 01/20/25 10:26 Comment map 112 01/18/25 15:46 Intake & Output 01/19/25 01/20/25 01/20/25 17:59 05:59 17:59 Intake Total 930 / 930 240 / 240 Balance 930 / 930 240 / 240 Weight 734 lb 9.283 oz 333 lb 12.478 oz Intake: Oral 930 / 930 240 / 240 Other: Urine Color Yellow Urine Appearance Clear Urine Odor Normal Stool Size Large Stool Characteristics Soft Formed Data Completed and Pending Pending Labs at Discharge: 01/15/25 01/15/25 01/15/25 00:15 09:47 10:23 WBC 16.04 H RBC 5.94 H Hgb 16.7 Hct 50.2 H MCV 85 MCH 28.1 MCHC 33.3 RDW 12.0 Plt Count 438 H MPV 11.3 H Immature Gran % 0.4 Neutrophils % 76.4 Lymphocytes % 15.6 Monocytes % 5.5 Eosinophils % 1.6 Basophils % 0.5 Nucleated RBC % 0.0 Absolute Neutrophils 12.25 H Absolute Lymphocytes 2.50 Absolute Monocytes 0.88 H Absolute Eosinophils 0.26 Absolute Basophils 0.08 VBG pH 7.19 L VBG pCO2 39 L VBG pO2 51 VBG HCO3 15 L VBG Total CO2 13 L VBG O2 Saturation 80 VBG Base Excess -14 L VBG Lactate 3.0 H* Sodium 137 D 129 L Potassium 3.6 D 4.6 D Chloride 103 90 L Carbon Dioxide 24.0 15.1 L Anion Gap 10 24 H BUN 14 24 H Creatinine 0.9 1.1 Est GFR (CKD-EPI 2020) 97.33 78.54 Glucose 165 H 647 H* Hemoglobin A1c C-Peptide ng/ml 3.3 Calcium 8.9 10.1 Phosphorus Magnesium 2.1 Total Bilirubin 0.40 AST 25 ALT 45 Alkaline Phosphatase 83 Total Protein 8.8 H Albumin 4.9 Lipase 51 Beta-Hydroxybutyrate > 4.50 H TSH 3.62 Urine Color Yellow Urine Clarity Clear Urine pH 5.5 Ur Specific [place] 1.025 Urine Protein >=300 H Urine Ketones >=160 H Urine Blood Moderate H Urine Nitrite Negative Urine Bilirubin Small H Urine Urobilinogen 0.2 Ur Leukocyte Esterase Negative Urine RBC 3-5 H Urine WBC 0-2 Ur Epithelial Cells Rare Urine Crystals Few Amorphous Urine Bacteria Rare Urine Casts 0-2 Fine Granular Urine Mucus Negative Ur Culture Indicated? No Urine Glucose 500 H Anti-MICKY 65 Antibody 0.00 Insulin Antibody Pending COVID-19 Source SARS-CoV-2 (PCR) Influenza Type A (PCR) Influenza Type B (PCR) RSV (PCR) 01/15/25 01/15/25 01/15/25 13:30 16:00 16:15 WBC RBC Hgb Hct MCV MCH MCHC RDW Plt Count MPV Immature Gran % Neutrophils % Lymphocytes % Monocytes % Eosinophils % Basophils % Nucleated RBC % Absolute Neutrophils Absolute Lymphocytes Absolute Monocytes Absolute Eosinophils Absolute Basophils VBG pH VBG pCO2 VBG pO2 VBG HCO3 VBG Total CO2 VBG O2 Saturation VBG Base Excess VBG Lactate Sodium 135 L 135 L Potassium 4.6 4.3 Chloride 100 98 Carbon Dioxide 13.3 L 18.5 L Anion Gap 21.7 H 18.4 H BUN 21 18 Creatinine 0.9 0.9 Est GFR (CKD-EPI 2020) 101.08 102.40 Glucose 402 H 334 H Hemoglobin A1c C-Peptide ng/ml Calcium 9.2 9.4 Phosphorus Magnesium Total Bilirubin AST ALT Alkaline Phosphatase Total Protein Albumin Lipase Beta-Hydroxybutyrate TSH Urine Color Urine Clarity Urine pH Ur Specific [place] Urine Protein Urine Ketones Urine Blood Urine Nitrite Urine Bilirubin Urine Urobilinogen Ur Leukocyte Esterase Urine RBC Urine WBC Ur Epithelial Cells Urine Crystals Urine Bacteria Urine Casts Urine Mucus Ur Culture Indicated? Urine Glucose Anti-MICKY 65 Antibody Insulin Antibody COVID-19 Source Nasopharynx SARS-CoV-2 (PCR) Negative Influenza Type A (PCR) Negative Influenza Type B (PCR) Negative RSV (PCR) Negative 01/15/25 01/16/25 01/17/25 20:00 05:50 07:00 WBC 10.24 8.10 RBC 5.16 5.05 Hgb 14.9 14.6 Hct 43.9 42.9 MCV 85 85 MCH 28.9 28.9 MCHC 33.9 34.0 RDW 12.2 12.2 Plt Count 307 310 MPV 11.0 10.8 Immature Gran % Neutrophils % Lymphocytes % Monocytes % Eosinophils % Basophils % Nucleated RBC % Absolute Neutrophils Absolute Lymphocytes Absolute Monocytes Absolute Eosinophils Absolute Basophils VBG pH VBG pCO2 VBG pO2 VBG HCO3 VBG Total CO2 VBG O2 Saturation VBG Base Excess VBG Lactate Sodium 139 138 134 L Potassium 3.9 3.5 3.8 Chloride 102 104 101 Carbon Dioxide 22.9 22.3 20.7 Anion Gap 14.1 H 11.7 H 12.3 H BUN 15 13 13 Creatinine 0.8 0.8 1.0 Est GFR (CKD-EPI 2020) 109.46 117.49 90.55 Glucose 216 H 146 H 311 H Hemoglobin A1c 11.6 H C-Peptide ng/ml Calcium 9.1 8.6 8.7 Phosphorus 2.0 L Magnesium 1.7 Total Bilirubin AST ALT Alkaline Phosphatase Total Protein Albumin Lipase Beta-Hydroxybutyrate TSH Urine Color Urine Clarity Urine pH Ur Specific [place] Urine Protein Urine Ketones Urine Blood Urine Nitrite Urine Bilirubin Urine Urobilinogen Ur Leukocyte Esterase Urine RBC Urine WBC Ur Epithelial Cells Urine Crystals Urine Bacteria Urine Casts Urine Mucus Ur Culture Indicated? Urine Glucose Anti-MICKY 65 Antibody Insulin Antibody COVID-19 Source SARS-CoV-2 (PCR) Influenza Type A (PCR) Influenza Type B (PCR) RSV (PCR) 01/17/25 01/19/25 01/20/25 12:20 06:10 06:20 WBC 5.20 5.86 RBC 4.45 4.59 Hgb 12.6 L D 13.4 L Hct 37.8 L 39.7 L MCV 85 87 MCH 28.3 29.2 MCHC 33.3 33.8 RDW 12.2 12.2 Plt Count 226 247 MPV 10.9 11.1 H Immature Gran % Neutrophils % Lymphocytes % Monocytes % Eosinophils % Basophils % Nucleated RBC % Absolute Neutrophils Absolute Lymphocytes Absolute Monocytes Absolute Eosinophils Absolute Basophils VBG pH VBG pCO2 VBG pO2 VBG HCO3 VBG Total CO2 VBG O2 Saturation VBG Base Excess VBG Lactate Sodium 140 142 Potassium 3.5 3.5 Chloride 103 104 Carbon Dioxide 26.6 28.7 Anion Gap 10.4 9.3 BUN 15 14 Creatinine 0.93 0.91 Est GFR (CKD-EPI 2020) 97.32 99.79 Glucose 441 H 233 H 211 H Hemoglobin A1c C-Peptide ng/ml Calcium 9.2 8.9 Phosphorus Magnesium Total Bilirubin AST ALT Alkaline Phosphatase Total Protein Albumin Lipase Beta-Hydroxybutyrate TSH Urine Color Urine Clarity Urine pH Ur Specific [place] Urine Protein Urine Ketones Urine Blood Urine Nitrite Urine Bilirubin Urine Urobilinogen Ur Leukocyte Esterase Urine RBC Urine WBC Ur Epithelial Cells Urine Crystals Urine Bacteria Urine Casts Urine Mucus Ur Culture Indicated? Urine Glucose Anti-MICKY 65 Antibody Insulin Antibody COVID-19 Source SARS-CoV-2 (PCR) Influenza Type A (PCR) Influenza Type B (PCR) RSV (PCR) PFSH All Active Problems (Updated 01/15/25 @ 15:07 by LYNNETTE ROONEY) Obesity (Chronic) Hypertension (Chronic) Diabetes (Chronic) Dehydration (Acute) Diabetic ketoacidosis (Acute) Family History (Updated 01/15/25 @ 16:55 by Herminio Merrill) Maternal Grandmother Diabetes Social History (Updated 01/15/25 @ 16:57 by Herminio Merrill) Smoking/Tobacco Use Status: Never Smoking risk assessment performed?: Yes Alcohol Intake: current Alcohol Intake frequency: holidays/special occasions only Drug use: Never Adopted: Yes Housing: apartment Do you feel safe at home: Yes Do you feel safe in your relationship?: Yes Additional Social history: Adopted, lives with adoptive Mom and GURPREET in [place], has relationship with mom. Sister lives in [facility]. Works at [employer] Time Spent with Patient Time Spent with Patient: <45 minutes Time was spent: preparing to see the patient(eg.review tests), obtaining and/or reviewing separately otained hiistory, ordering medications,tests, procedures, referring, communicating with other health careers adviser, indepentently interpreting results, counseling the patient and care coordination
== END 2025-01-20 13:52 | disposition home or self-care (01) | DRG 638 ==
LOC: ER 12:13 → ICU 15:07 → MS 01-16 18:39
PROVIDERS: Admitting Provider Family Medicine; Emergency Provider Student in an Organized Health Care Education/Training Program; Responsible Provider Family Medicine; Visit Provider Family Medicine
DX: E11.10 Type 2 diabetes mellitus with ketoacidosis without coma (principal); Z68.41 Body mass index [BMI] 40.0-44.9, adult; I10 Essential (primary) hypertension; E66.01 Morbid (severe) obesity due to excess calories; N48.89 Other specified disorders of penis
CPT/HCPCS: 00123; 36415; 36416; 80048; 80053; 82805; 82947; 82962; 83690; 85027; 86341; 87637; 93005; 96365; 96366; 96375; 99291; J1650; 74177; 81003; 81015; 83036; 83605; 83735; 84100; 84443; 84681; 85025; 86337; 93010; 99223; 99233; 99239; J1815; J2405; J3490